=== PATIENT | male | born 1985 | race American Indian/Alaskan Native ===

== ENCOUNTER 2016-11-16 10:32 | Emergency (ER) | payer OTHER ==
--- NOTE | 2016-11-16 11:30 | XRay Report ---
RIGHT ANKLE THREE VIEWS: 11/16/16 10:32:00 CLINICAL: Pain. FINDINGS: The ankle mortise is intact.No fracture or dislocation. Normal soft tissues. IMPRESSION: Normal.
[2016-11-16] MEDS ORDERED: NORCO 5/325 PO ONE (13:23)
--- NOTE | 2016-11-16 13:27 | Emergency Department Report ---
Entered by THIAGO GUZMÁN, acting as scribe for ADRIENNE FRYE PA. ED Lower Extremity HPI - General Chief Complaint: Extremity Injury, Lower Stated Complaint: ANKLE INJURY Time Seen by Provider: 11/16/16 12:51 Source: patient, family Mode of arrival: Ambulatory Limitations: No Limitations - History of Present Illness Initial Comments: 31 y/o male presents to the ED c/o right injured ankle that occurred on October 16, 2016. Associated symptoms include pain but he denies fever and chills. Pain is described as 8/10 on a severity scale. Patient had X-rays done on right ankle with normal results by Dr. Lilly Alvarez and he was told to follow up with an orthopedic but patient did not f/u. He is asking for a cast to be placed on his right ankle (currently wearing an ankle brace). No alleviating or aggravating factors. NKDA. Denies any numbness or tingling. Pain is 8 out of 10 to her right ankle. He said he is here to have cast placed on his right ankle in emergency room today. He is wearing a right ankle brace. Complaint: ankle injury (right) Onset/Timin -: month(s) Injury: Ankle: Right (ankle painfrom previous injury) Type of Injury: other (ankle sprain and October 16.) Place: home Severity: severe Severity scale (0 -10): 8 Improves With: nothing Worsens With: nothing Context: other (twisting rt ankle 3 mos ago) Associated Symptoms: ambulatory. denies: snap/pop sensation, swelling, numbness , tingling Treatments Prior to Arrival: other (Wearing right ankle brace) - Related Data Previous Rx's Medication Instructions Recorded Last Taken Type Ibuprofen [Motrin] 600 mg PO Q8H PRN #15 tablet 11/16/16 Unknown Rx Allergies Allergy/AdvReac Type Severity Reaction Status Date / Time No Known Allergies Allergy Unverified 11/16/16 10:35 ED Review of Systems Comment: All other systems reviewed and negative Constitutional: no symptoms reported. denies: chills, fever Respiratory: no symptoms reported Cardiovascular: denies: chest pain, palpitations, edema, syncope Gastrointestinal: denies: abdominal pain, nausea, vomiting Musculoskeletal: arthralgia. denies: back pain, joint swelling, myalgia Skin: denies: rash Neurological: denies: headache Psychiatric: denies: anxiety ED Past Medical Hx - Past Medical History Previous Medical History?: Yes Additional medical history: right ankle injury - Surgical History Past Surgical History?: Yes Additional Surgical History: Oral surgery - Family History Family history: hypertension - Social History Smoking Status: Current Every Day Smoker Substance Use Type: Alcohol, Marijuana - Medications Home Medications: Home Medications Medication Instructions Recorded Confirmed Last Taken Type Ibuprofen [Motrin] 600 mg PO Q8H PRN #15 tablet 11/16/16 Unknown Rx ED Physical Exam - General Limitations: No Limitations General appearance: alert, in no apparent distress - Head Head exam: Present: atraumatic, normocephalic, normal inspection - Eye Eye exam: Present: normal appearance, PERRL, EOMI Pupils: Present: normal accommodation - ENT ENT exam: Present: normal exam, normal orophraynx, mucous membranes moist, TM's normal bilaterally, normal external ear exam - Neck Neck exam: Present: normal inspection, full ROM. Absent: tenderness, meningismus, lymphadenopathy - Respiratory Respiratory exam: Present: normal lung sounds bilaterally. Absent: respiratory distress, chest wall tenderness - Cardiovascular Cardiovascular Exam: Present: regular rate, normal rhythm, normal heart sounds - GI/Abdominal GI/Abdominal exam: Present: soft, normal bowel sounds. Absent: tenderness, guarding, rebound - Extremities Exam Extremities exam: Present: normal inspection, full ROM, normal capillary refill. Absent: tenderness, pedal edema, joint swelling, calf tenderness - Expanded Lower Extremity Exam Right Hip exam: Present: normal inspection, full ROM, pelvic stability. Absent: tenderness, swelling, abrasion, laceration, ecchymosis, deformity, crepidus, dislocation, erythema, external rotation, internal rotation, shortening Upper Leg exam: Present: normal inspection, full ROM. Absent: tenderness, swelling, abrasion, laceration, ecchymosis, deformity, crepidus, dislocation, erythema Knee exam: Present: normal inspection, full ROM, full knee extension. Absent: tenderness, swelling, abrasion, laceration, ecchymosis, deformity, crepidus, dislocation, erythema, effusion, pain w/ pronation/supination, posterior draw sign Lower Leg exam: Present: normal inspection, full ROM, tenderness. Absent: swelling, abrasion, laceration, ecchymosis, deformity, crepidus, dislocation, erythema, palpable cord, Bhupinder's sign Ankle exam: Present: normal inspection, full ROM. Absent: tenderness, swelling , abrasion, laceration, ecchymosis, deformity, crepidus, dislocation, erythema Foot/Toe exam: Present: normal inspection, full ROM. Absent: tenderness, swelling, abrasion, laceration, ecchymosis, deformity, crepidus, dislocation, erythema, amputation, puncture wound, foreign body, calcaneal tenderness, tenderness at base of 5th metatarsal, nail avulsion, subungual hematoma Neuro vascular tendon exam: Present: no vascular compromise Gait: Positive: observed and normal - Back Exam Back exam: Present: normal inspection, full ROM. Absent: tenderness - Neurological Exam Neurological exam: Present: alert, oriented X3, normal gait, reflexes normal. Absent: motor sensory deficit - Psychiatric Psychiatric exam: Present: normal affect, normal mood - Skin Skin exam: Present: warm, dry, intact, normal color. Absent: rash ED Course Vital Signs 11/16/16 10:36 Temperature 98.7 F Pulse Rate 59 L Respiratory 20 Rate Blood Pressure 124/85 O2 Sat by Pulse 97 Oximetry - Reevaluation(s) Reevaluation #1: 11/16/16 13:22 Patient stable throughout ED stay. ED Lower Extremity MDM - Radiology Data Radiology results: report reviewed X-ray of right ankle revealed no acute fracture dislocation and no soft tissue swelling. - Medical Decision Making ED course: Patient is status post right ankle sprain 1 week ago and was seen by Dr. ALBERT Alvarez and was told to follow-up with orthopedic doctor which she did not. Patient said he is here today to be placed in a right ankle cast and he has ankle brace. I discussed the patient that his x-ray did not show any fracture or dislocated bones and there are no soft tissue swelling. Patient is ambulating without any abnormal gait. Nontender to palpate with full range of motion to all extremities. I discussed the patient if he still having pain he needs to keep for an ankle brace and follow up with orthopedic doctor. Discharged home with prescription for Motrin. Patient given [place] 5/325 one tablet in emergency room for ankle pain ED Disposition Clinical Impression: Arthralgia of ankle, right Right ankle injury Qualifiers: Encounter type: initial encounter Qualified Code(s): S99.911A - Unspecified injury of right ankle, initial encounter Disposition: DC-01 TO HOME OR SELFCARE Is pt being admited?: No Does the pt Need Aspirin: No Condition: Stable Instructions: Arthralgia (ED) Additional Instructions: Please continue warrior ankle brace. Follow-up with Dr. Zhao was orthopedic doctor. You do not need a splint or cast as your swelling to ankle has resolved. Prescriptions: Ibuprofen [Motrin] 600 mg PO Q8H PRN #15 tablet PRN Reason: Pain Referrals: DUNG ZHAO MD [Staff Physician] - 2-3 Days Forms: Work/School Release Form(ED) This documentation as recorded by the ARIELLE colón ELIZABETH,accurately reflects the service I personally performed and the decisions made by me,ADRIENNE FRYE PA.
[2016-11-16 13:37] VITALS: BP 135/85
== END 2016-11-16 13:36 | disposition home or self-care (01) ==
LOC: ED 10:32
DX: S99.911A Unspecified injury of right ankle, initial encounter (principal); F17.200 Nicotine dependence, unspecified, uncomplicated; F12.10 Cannabis abuse, uncomplicated; X58.XXXA Exposure to other specified factors, initial encounter; Y93.89 Activity, other specified; Y99.8 Other external cause status; Y92.89 Other specified places as the place of occurrence of the external cause
CPT/HCPCS: 99283